=== PATIENT | male | born 1940 | race Caucasian/White ===

== ENCOUNTER → 2024-06-04 12:49 | Outpatient (CLI) | payer OTHER, SELFPAY ==
--- NOTE | 2024-06-04 12:53 | DI.ECHO.S_ITS ---
[place] [facility] : : [address] : : [place] : : [id number] : : Phone: [phone] Echocardiogram Report + + :Name: KAMI ALONSO Study Date: 06/04/2024 Height: 65 in : :[facility] ReadingLocation: Weight: 160 lb : : Gender: Male BSA: 1.8 m2 : :: 1940 Age: 83 yrs BP: 168/85 mmHg: :Reason For Study: SYNCOPE : :Ordering Physician: CHAZ, : :ANGLE Performed By: Ildefonso De Santiago : :Referring: UNSPECIFIED : + + Interpretation Summary The left ventricle is normal in size. Left ventricular ejection fraction is estimated to be 50%. There are no obvious focal wall motion abnormalities noted but poor endocardial definition reduces the sensitivity for the detection of such. Diastolic parameters suggest a relaxation abnormality of the left ventricle, consistent with probable normal filling pressures. The right ventricle is mildly dilated. The right ventricular systolic function is normal. Pulmonary artery pressures cannot be estimated because of the lack of a measurable TR jet velocity. The left atrial size is normal. There is mild to moderate aortic stenosis. The peak aortic velocity is 2.66 m/sec. The calculated aortic valve area is 1.4 cm2. The aortic root is normal size. Procedure: A two-dimensional transthoracic echocardiogram with color flow and Doppler was performed. The study quality was technically good. There is no prior echocardiogram noted for this patient. The patient was in normal sinus rhythm during the exam. Left Ventricle: The left ventricle is normal in size. Left ventricular wall thickness is mildly increased. There is no ventricular septal defect visualized. A false chord is noted (normal variant). Left ventricular ejection fraction is estimated to be 50%. There are no obvious focal wall motion abnormalities noted but poor endocardial definition reduces the sensitivity for the detection of such. Diastolic parameters suggest a relaxation abnormality of the left ventricle, consistent with probable normal filling pressures. Right Ventricle: The right ventricle is mildly dilated. The right ventricular systolic function is normal. Atria: The left atrial size is normal. Right atrial size is normal. There is no Doppler evidence for an atrial septal defect. Mitral Valve: The mitral valve leaflets appear mildly thickened, but open well. There is no mitral regurgitation noted. Aortic Valve: The aortic valve is trileaflet. The aortic valve is moderately calcified. There is mild to moderate aortic stenosis. The peak aortic velocity is 2.66 m/sec. The aortic valve mean gradient is 15.7 mmHg. The calculated aortic valve area is 1.4 cm2. No aortic regurgitation is present. Tricuspid Valve: The tricuspid valve leaflets are thin and pliable. No tricuspid regurgitation. Pulmonary artery pressures cannot be estimated because of the lack of a measurable TR jet velocity. Pulmonic Valve: The pulmonic valve leaflets are thin and pliable; valve motion is normal. There is trace pulmonic regurgitation. Great Vessels: The aortic root is normal size. The dimensions of the ascending aorta are normal. The pulmonary artery is normal size. The IVC is of normal diameter and collapses greater than 50% with a sniff. This suggests a low right atrial pressure of 3 mm Hg. Pericardium/ Pleura There is no pericardial effusion. There is no pleural effusion. MMode/2D Measurements & Calculations LVIDd: 4.6 cm LVOT diam: 2.4 cm LVIDs: 3.3 cm Ao root diam: 3.7 cm FS: 28.3 % asc Aorta Diam: 3.1 cm EPSS: 0.97 cm IVSd: 1.2 cm LVPWd: 1.1 cm LV fernandez. diameter/BSA (cm/m^2): 2.5 LV sys. diameter/BSA (cm/m^2): 1.8 LA A2 area: 18.7 cm2 RA long axis: 4.9 cm LA A4 area: 15.1 cm2 RA area: 13.7 cm2 LA length (vol): 5.2 cm RA vol: 32.5 ml LA vol: 46.0 ml RA : 18.1 ml/m2 LA vol index: 25.6 ml/m2 IVC diam: 1.3 cm RVD1 (basal): 4.2 cm RVD2 (mid): 3.8 cm TAPSE: 2.7 cm Doppler Measurements & Calculations Ao V2 max: 266.3 cm/sec LVOT Max Santhosh: 79.1 cm/sec Ao V2 mean: 182.3 cm/sec LV V1 max P.5 mmHg Ao max P.4 mmHg LV V1 VTI: 15.9 cm Ao mean P.7 mmHg KATHI(I,D): 1.4 cm2 Ao V2 VTI: 52.0 cm KATHI(V,D): 1.3 cm2 sev ratio: 0.30 KATHI indexed to BSA (cm^2/m^2): 0.75 MV E max santhosh: 45.9 cm/sec PA V2 max: 68.1 cm/sec MV A max santhosh: 97.0 cm/sec PA V2 mean: 45.1 cm/sec MV E/A: 0.47 PA mean P.94 mmHg Med Peak E' Santhosh: 6.0 cm/sec PA pr(Accel): 29.3 mmHg E/E' med: 7.7 Lat Peak E' Santhosh: 6.1 cm/sec E/E' lat: 7.6 E/e' average: 7.6 MV dec time: 0.20 sec SV(LVOT): 70.4 ml Reading Physician:07:35 PM
== END ==
LOC: ECHO 12:52
PROVIDERS: Referring Provider Physician Assistant; Visit Provider Physician Assistant
DX: I35.0 Nonrheumatic aortic (valve) stenosis (principal); R55 Syncope and collapse
CPT/HCPCS: 93306